=== PATIENT | female | born 1955 | race Caucasian/White ===

== ENCOUNTER 2024-09-05 10:19 | Emergency (ER) | payer MEDICARE ==
[~2024-09-05] VITALS: Ht 172.7 cm; Wt 50.0 kg
[2024-09-05 10:28] VITALS: TEMP 98.2
[2024-09-05] MEDS: KETOROLAC TROMETHAMINE 30 MG/ML VIAL IM ONE (11:51)
[2024-09-05 14:24] VITALS: BP 109/72; PULSE 87; RESP 15; O2SAT 96
== END 2024-09-05 14:31 | disposition home or self-care (01) ==
LOC: EMS 10:40
DX: M25.551 Pain in right hip (principal); F41.9 Anxiety disorder, unspecified; F32.A Depression, unspecified; Z96.641 Presence of right artificial hip joint
CPT/HCPCS: 99283; 73521; 96372; J1885

== ENCOUNTER 2024-09-14 11:11 | Emergency (ER) | payer MEDICARE ==
[~2024-09-14] VITALS: Ht 172.7 cm; Wt 47.6 kg
[2024-09-14 11:26] VITALS: TEMP 98.7
[2024-09-14] MEDS ORDERED: ESCI-8 PO (12:17)
[2024-09-14] MEDS ORDERED: TRAZ-252 PO (12:17)
[2024-09-14] MEDS ORDERED: GABA-529 PO (12:17)
[2024-09-14] MEDS ORDERED: AMLO5TAB66 PO (12:17)
[2024-09-14] MEDS: KETOROLAC TROMETHAMINE 30 MG/ML VIAL IM ONE (12:26)
[2024-09-14] MEDS: LIDOCAINE 5% TRANSDERMAL PATCH TD ONE (12:26)
[2024-09-14 12:53] VITALS: BP 144/76; PULSE 70; RESP 18; O2SAT 98
== END 2024-09-14 17:30 | disposition home or self-care (01) ==
LOC: EMS 11:16
DX: M25.561 Pain in right knee (principal); F32.A Depression, unspecified; F41.9 Anxiety disorder, unspecified; G10 Huntington's disease; Z79.899 Other long term (current) drug therapy; W19.XXXA Unspecified fall, initial encounter
CPT/HCPCS: 99283; 73562; 96372; J1885

== ENCOUNTER 2024-10-18 16:35 | Emergency (ER) | payer MEDICARE ==
[~2024-10-18] VITALS: Ht 172.7 cm; Wt 47.8 kg
[~2024-10-18 16:35] MED LIST: AMLO5TAB66 PO; ESCI-8 PO; GABA-529 PO; TRAZ-252 PO
[2024-10-18 18:23] VITALS: TEMP 99.005360
[2024-10-18 21:06] LABS: APPEARANCE,URINE HAZY (CLEAR); GLUCOSE, URINE (UA) NEGATIVE (NEGATIVE); LEUKOCYTE ESTERASE ,URINE LARGE (NEGATIVE); NITRATE,URINE POSITIVE (NEGATIVE); OCCULT BLOOD,URINE NEGATIVE (NEGATIVE); SPECIFIC GRAVITIY, URINE 1.025 (1.003-1.030)
[2024-10-18 21:32] LABS: SQUAMOUS EPITHELIAL CELL,UR Few /LPF (None Seen)
[2024-10-18 21:35] LABS: PLATELET COUNT (AUTO) 240 K/uL (150-450); RED BLOOD CELL COUNT(AUTO) 4.24 MIL/uL (4.00-5.20); RED CELL DISTRIBUTION WIDTH 14.2 % (11.5-14.5); WHITE BLOOD COUNT (AUTO) 5.9 K/uL (4.5-11.0)
[2024-10-18 21:39] LABS: CALCIUM, TOTAL 8.5 mg/dL (8.8-10.5); CREATININE 0.51 mg/dL (0.60-1.30); GLOMERULAR FILTR. RATE CALC > 60 mL/min (>60); GLUCOSE,RANDOM 104 mg/dL (70-110); SODIUM SERUM 144 mmol/L (136-145); UREA NITROGEN, BLOOD 18 mg/dL (7-18)
[2024-10-18] MEDS ORDERED: CEPH-558 PO (23:14)
[2024-10-19 00:03] VITALS: BP 130/60; PULSE 75; RESP 18; O2SAT 97
[2024-10-19] MEDS: CEPHALEXIN MONOHYDRATE 500 MG CAPSULE PO ONE (00:05)
== END 2024-10-19 00:07 | disposition home or self-care (01) ==
LOC: EMS 16:35
DX: T50.991A Poisoning by other drugs, medicaments and biological substances, accidental (unintentional), initial encounter (principal); N39.0 Urinary tract infection, site not specified; F32.A Depression, unspecified; F41.9 Anxiety disorder, unspecified; Z79.899 Other long term (current) drug therapy; Y92.89 Other specified places as the place of occurrence of the external cause
CPT/HCPCS: 80048; 81001; 85025; 87077; 87086; 87186; 99283